=== PATIENT | female | born 1975 | race African-American/Black ===

== ENCOUNTER 2018-09-02 13:10 | Outpatient (CLI) | payer MEDICAID ==
--- NOTE | 2018-09-02 14:51 | MMO ---
BILATERAL SCREENING MAMMOGRAM: Date: 09/02/18 HISTORY: 43-year-old female. Routine screening mammography. COMPARISON: None. Current study will be treated as baseline mammogram. TECHNIQUE: CC and MLO views of both breasts are submitted for interpretation. This patient's mammogram was reviewed with the assistance of computer-aided detection. FINDINGS: The breasts are composed of heterogeneously dense fibroglandular tissue, which limits the sensitivity of mammography in the detection of underlying malignancy. Bilaterally, no suspicious dominant mass, architectural distortion, or suspicious calcification. Bilateral intramammary lymph nodes are noted. IMPRESSION: BIRADS 2: Benign Finding(s) RECOMMENDATION: Annual mammogram. POS: [facility]
== END 2018-09-02 13:11 | disposition home or self-care (01) ==
LOC: SCSMAMMO 13:10
PROVIDERS: ATTEND Nurse Practitioner Women's Health
DX: Z12.31 Encounter for screening mammogram for malignant neoplasm of breast (principal)
CPT/HCPCS: 77067